=== PATIENT | female | born 1950 | race African-American/Black ===

== ENCOUNTER → 2017-01-30 | Outpatient (CLI) | payer OTHER ==
[~2017-01-30] MED LIST: ALLEGRA PO; AMLODIPINE BESY10 MG PO; B COMPLEX/FOLIC1 TAB PO; BENAZEPRIL HCL10 MG PO; CARDIZEM CD240 M2 PO; CRESTOR PO; DYAZIDE 37.5/251 CAP PO; FOLIC ACID PO; GLUCOPHAGE XR500 MG PO; GLUCOPHAGE500 MG PO; LASIX20 MG PO; METFORMIN HCL500 M1 PO; NEXIUM PO; POSTURE600 MG PO; PRAVASTATIN SOD80 MG PO; PRILOSEC PO; RANITIDINE HCL300 MG PO; SIMVASTATIN40 MG PO; TRIAMTERENE/HCTZ PO; VIT D PO; VITAMIN D 4001 UDTAB PO; VITAMIN D400 UNI2 PO
--- NOTE | ~2017-01-30 | US17 ---
[facility] A Service of [facility] RADIOLOGY TEXT RESULTS PATIENT: CHONG MALONEY LOCATION: [facility] : 46 UNIT #: [id number] AGE: [address]: Fatuma Schmid MD SEX: F ORDER DR: [id number] [facility]. [place], [place] [address] [id number] MR#: [id number] Acc #: [id number] NAME: CHONG MALONEY. : 1950 SEX: F STUDY DATE/TIME: 01/30/2017 11:51 UNIT: [facility] ROOM: STUDY DESCRIPTION: US Breast Bilateral Attending Physician: Fatuma Schmid M.D. Ordering Physician: Fatuma Schmid M.D. Primary Care Physician: Fatuma Schmid M.D. MEDICAL IMAGING REPORT This report is preliminary unless electronic signature is present EXAM Bilateral whole breast ultrasound, 01/30/2017 INDICATIONS 67-year-old female status post bilateral mastectomy secondary to a history of breast cancer. Additional history of benign ultrasound guided biopsy two right breast masses consistent with neuromas. Implant assessment requested bilaterally. No current problems. TECHNIQUE Sonographic imaging of the right and left breast areas was performed utilizing a whole breast ultrasound protocol. COMPARISON 01/27/2016, 04/04/2015 FINDINGS The patient was initially scanned independently by the technologist and then rescanned in my presence. RIGHT BREAST RECONSTRUCTION AREA: Imaging of the right breast reconstruction area was performed and is negative. There is no cystic or solid nodule or persistent shadowing abnormality. Visualized implant unremarkable. LEFT BREAST RECONSTRUCTION AREA: Imaging of the left breast reconstruction area was performed and is also negative demonstrating no cystic or solid nodule or persistent shadowing abnormality. Visualized implant unremarkable. At this point clinical considerations should determine additional imaging of the breast reconstruction areas. If there is persistent concern for underlying pathology, cross-sectional imaging including MRI or CT could be [facility] A Service of [facility] RADIOLOGY TEXT RESULTS PATIENT: CHONG MALONEY LOCATION: [facility] : 46 UNIT #: [id number] AGE: [address]: Fatuma Schmid MD SEX: F ORDER DR: performed for further assessment. This was discussed with the patient here in the department prior to her departure. She voiced understanding and agreement. IMPRESSION Imaging of the breast reconstruction areas bilaterally demonstrates unremarkable appearance of the visualized implants. Clinical considerations to determine additional imaging at this point. In the absence of new complaints or clinical concern, annual clinical breast exam would be recommended for this patient given the history of bilateral mastectomy. Patients over the age of 40 are entered into a reminder system with target due date for the next mammogram. A result letter will also be sent to the patient. BIRADS: 2 Benign Finding Dictated by... Johan Godwin M.D. THIS IS AN ELECTRONICALLY VERIFIED REPORT Johan Godwin M.D. at 01/30/2017 4:56 PM C[place] TD: 01/30/2017 16:28 JOB #: [id number] MEDICAL IMAGING REPORT COPY
== END | disposition home or self-care (01) ==
LOC: CWCC 11:14
DX: T85.9XXA Unspecified complication of internal prosthetic device, implant and graft, initial encounter (principal)
CPT/HCPCS: 76641